=== PATIENT | male | born 1955 | race American Indian/Alaskan Native ===

== ENCOUNTER 2018-11-24 11:33 | Observation (INO) | payer MEDICARE ==
[2018-11-19 11:16] LABS: Hematocrit 41.3 % (35.5-45.6); Hemoglobin 14.4 gm/dl (11.8-15.2); Mean Corpuscular HGB Conc 35 % (32-34); Mean Corpuscular Volume 86 fl (84-94); Platelet Count 377 K/mm3 (140-440); Red Blood Count 4.77 M/mm3 (3.65-5.03); Red Cell Distribution Width 13.8 % (13.2-15.2)
[2018-11-19 11:29] LABS: INR 0.86 (0.87-1.13)
[2018-11-19 11:30] LABS: Partial Thromboplastin Time 33.2 Sec. (24.2-36.6)
[2018-11-19 11:32] LABS: Alanine Aminotransferase 13 units/L (7-56); BUN/Creatinine Ratio 8; Blood Urea Nitrogen 6 mg/dL (9-20); Calcium 9.1 mg/dL (8.4-10.2); Hemolysis Index 22
[2018-11-19 12:26] LABS: Basophils % (Manual) 0 % (0.0-1.8); Target Cells Few; Total Cells Counted 100
[2018-11-19 12:27] LABS: Platelet Estimate Consistent w Auto
--- NOTE | 2018-11-19 15:17 | Anesthesia Consultation ---
Anesthesia Consult and Med Hx Date of service: 11/19/18 - Airway Anesthetic Teeth Evaluation: Poor ROM Head & Neck: Adequate Mental/Hyoid Distance: Adequate Mallampati Class: Class I Intubation Access Assessment: Good - Pulmonary Exam CTA: Yes - Cardiac Exam Cardiac Exam: RRR - Pre-Operative Health Status ASA Pre-Surgery Classification: ASA3 Proposed Anesthetic Plan: General (Severe COPD, HTN) - Pulmonary Hx Smoking: Yes (1 PPD X 50 YRS) COPD: Yes (DAILY INHALERS) Hx Sleep Apnea: No (AUGIE PRE SCREEN LOW RISK.) - Cardiovascular System Hx Hypertension: No - Other Systems Hx Cancer: No
[~2018-11-24 11:33] MED LIST: VERSED IV NR
[2018-11-24] MEDS ORDERED: PROVENTIL IH ONE (12:35)
[2018-11-24] MEDS: LACTATED RINGERS 1,000 ML IV SCH ×3 (12:37→16:31)
[2018-11-24] MEDS ORDERED: PROVENTIL IH NR (13:00)
[2018-11-24] MEDS ORDERED: XYLOCAINE MPF 2% ONE (13:04)
[2018-11-24] MEDS ORDERED: DILAUDID ONE (13:04)
[2018-11-24] MEDS ORDERED: DIPRIVAN 10 MG/ML IV ONE (13:04)
[2018-11-24] MEDS ORDERED: LEVAQUIN 500MG/100ML 500 MG/100 ML BAG IV NR (13:05)
[2018-11-24] MEDS ORDERED: ZOFRAN IV PRN ×2 (14:28→15:03)
[2018-11-24] MEDS ORDERED: DILAUDID IV PRN (14:28)
--- NOTE | 2018-11-24 14:28 | Anesthesia Day of Surgery ---
Anesthesia Day of Surgery - Day of Surgery Patient Examined: Yes Patient H&P Reviewed: Yes Patient is NPO: Yes
[2018-11-24] MEDS ORDERED: NACL 0.9% IR ONE (14:45)
[2018-11-24] MEDS ORDERED: AMBIEN PO PRN (15:03)
[2018-11-24] MEDS ORDERED: TYLENOL PO PRN (15:03)
[2018-11-24] MEDS ORDERED: ZOFRAN ONE (15:03)
[2018-11-24] MEDS ORDERED: NARCAN 0.4 MG/1 ML IV PRN (15:03)
[2018-11-24] MEDS ORDERED: MORPHINE IV PRN (15:03)
--- NOTE | 2018-11-24 15:03 | Short Stay Summary ---
Short Stay Documentation Date of service: 11/24/18 - History H&P: obtained from office - Allergies and Medications Current Medications: Allergies Penicillins Allergy (Verified 11/17/18 14:24) Hives Home Medications Medication Instructions Recorded Confirmed Last Taken Type Fluticasone/Salmeterol [Advair 1 puff INHALATION BID 11/17/18 11/17/18 11/24/18 06:00 History 250-50 Diskus] Ibuprofen 600 mg PO PRN PRN 11/17/18 11/24/18 11/16/18 History Loratadine [Claritin] 10 mg PO DAILY 11/17/18 11/17/18 11/24/18 06:00 History Tamsulosin HCl [Flomax] 0.8 mg PO DAILY 11/17/18 11/24/18 11/23/18 History Umeclidinium [place] [Incruse 62.5 mcg IH DAILY 11/17/18 11/17/18 11/24/18 06:00 History Ellipta] Active Medications Albuterol (Proventil) 2.5 mg IH PREOP NR Stop: 11/24/18 23:00 Last Admin: 11/24/18 12:38 Dose: 2.5 mg Documented by: Hydromorphone HCl (Dilaudid) 0.5 mg IV Q10MIN PRN PRN Reason: Pain , Severe (7-10) Lactated Ringer's (Lactated Ringers) 1,000 mls @ 100 mls/hr IV DIRECT ERICK Last Admin: 11/24/18 12:37 Dose: 100 mls/hr Documented by: Midazolam HCl (Versed) 2 mg IV PREOP NR Stop: 11/24/18 23:59 Ondansetron HCl (Zofran) 4 mg IV ONCE PRN PRN Reason: Nausea And Vomiting - Brief post op/procedure progress note Date of procedure: 11/24/18 Pre-op diagnosis: BPH, RETENTION Post-op diagnosis: same Procedure: CTSTO, TURP Anesthesia: LELEA Surgeon: ALLAN RODRÍGUEZ Estimated blood loss: 50-100ml Pathology: list (PROSTATE CHIPS) Specimen disposition: to lab Condition: stable - Hospital course Hospital course: CIPRO & NORCO ON CHART + fever / obs again - feels better/ no temp---home - Disposition Condition at discharge: Stable Short Stay Discharge Plan Follow up with: GWEN ANN EA, MD [Primary Care Provider] - 7 Days
--- NOTE | 2018-11-24 16:21 | Operative Report ---
PREOPERATIVE DIAGNOSES: Benign prostatic hypertrophy, urinary retention, chronic obstructive pulmonary disease. POSTOPERATIVE DIAGNOSES: Benign prostatic hypertrophy, urinary retention, chronic obstructive pulmonary disease. PROCEDURE: Cystoscopy, transurethral resection of the prostate, bilateral retrograde pyelograms. SURGEON: Efren Lozano MD ANESTHESIA: General. ESTIMATED BLOOD LOSS: Minimal. FLUIDS: Crystalloid. COMPLICATIONS: No complications. INDICATIONS: This patient is a 63-year-old gentleman seen in the office for urinary retention. The patient failed voiding trial despite medical management. Urodynamic testing was consistent with obstructive uropathy. Peak voiding pressure 1 mL/sec, postvoid residual 60 mL, bladder capacity 220 mL. Discussed options. The patient agreed to proceed with surgical intervention. 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 DESCRIPTION OF PROCEDURE: The patient was taken to the operative suite, placed in the supine position. After adequate general anesthesia, placed in a dorsal lithotomy position, prepped and draped in a sterile fashion. Pancystourethroscopy was performed with a 22-Palest[place] Storz cystoscope, normal urethra. Prostate displayed moderate trilobar obstruction with significant median lobe. Bladder, no tumors or stones were noted. Both ureteral orifices were in normal position. Bilateral retrograde pyelograms were obtained with an 8-Palestinian Jose Angel catheter, 8 mL of contrast. The patient had some distal J hooking of the ureter, normal otherwise. No filling defects or obstruction. Next, using a 26-Palestinian resectoscope and loop with cutting and coag, it was monopolar cutting and coag 200 and 120, transurethral resection of the prostate was performed taken down the median lobe first and then the left and right lateral lobes respectively. Adequate hemostasis was achieved. Chips were evacuated out with the [email or web address] evacuator. Upon completion of the procedure, the ureteral orifices and external sphincter were intact. A 24-Palestinian 3-way catheter ____ was left indwelling. Rectal exam was benign. He was extubated and taken to recovery room in stable condition. He will go home on Cipro and [place] and will follow up in the office. JOB# [id number] D[facility]/NTS
[2018-11-24] MEDS: NACL 0.9% IR SCH (16:32)
--- NOTE | 2018-11-24 18:24 | Post Anesthesia Evaluation ---
- Post Anesthesia Evaluation Patient Participated: Yes Airway Patent: Yes Stable Respiratory Function: Yes Nausea/Vomiting: No Temp > 96.8F: Yes Pain Manageable: Yes Adequeate Hydration: Yes Anesthesia Complications: No
[2018-11-24] MEDS: BROVANA NEBU IH SCH (20:08)
[2018-11-24] MEDS: PULMICORT IH SCH (20:08)
--- NOTE | 2018-11-24 21:21 | Consultation ---
History of Present Illness - Reason for Consult Consult date: 11/24/18 medical management Requesting physician: ALLAN RODRÍGUEZ - History of Present Illness Patient admitted after cystoscopy and TURP for BPH and urinary retention. Postop patient doing well. Patient has history of COPD. No fever or chills. Patient being admitted for one-day observation. Past History Past Medical History: COPD, other (BPH) Past Surgical History: TURP Social history: lives with family, full code Family history: hypertension Medications and Allergies Allergies Allergy/AdvReac Type Severity Reaction Status Date / Time Penicillins Allergy Hives Verified 11/17/18 14:24 Home Medications Medication Instructions Recorded Confirmed Last Taken Type Fluticasone/Salmeterol [Advair 1 puff INHALATION BID 11/17/18 11/17/18 11/24/18 06:00 History 250-50 Diskus] Ibuprofen 600 mg PO PRN PRN 11/17/18 11/24/18 11/16/18 History Loratadine [Claritin] 10 mg PO DAILY 11/17/18 11/17/18 11/24/18 06:00 History Tamsulosin HCl [Flomax] 0.8 mg PO DAILY 11/17/18 11/24/18 11/23/18 History Umeclidinium [place] [Incruse 62.5 mcg IH DAILY 11/17/18 11/17/18 11/24/18 06:00 History Ellipta] Active Meds: Active Medications Acetaminophen (Tylenol) 650 mg PO Q4H PRN PRN Reason: Pain, Mild (1-3)/Fever > 100.5 Acetaminophen/Hydrocodone Bitart ([place] 5/325) 2 each PO Q4H PRN PRN Reason: Pain, Moderate (4-6) Albuterol (Proventil) 2.5 mg IH PREOP NR Stop: 11/24/18 23:00 Last Admin: 11/24/18 12:38 Dose: 2.5 mg Documented by: Arformoterol Tartrate (Brovana Nebu) 15 mcg IH Q12HRT [facility] Last Admin: 11/24/18 20:08 Dose: 15 mcg Documented by: Budesonide (Pulmicort) 0.5 mg IH Q12HRT [facility] Last Admin: 11/24/18 20:08 Dose: 0.5 mg Documented by: Hydromorphone HCl (Dilaudid) 0.5 mg IV Q10MIN PRN PRN Reason: Pain , Severe (7-10) Lactated Ringer's (Lactated Ringers) 1,000 mls @ 100 mls/hr IV DIRECT ERICK Last Admin: 11/24/18 16:31 Dose: 100 mls/hr Documented by: Sodium Chloride (Nacl 0.9% 1000 Ml) 1,000 mls @ 75 mls/hr IV DIRECT ERICK Levofloxacin/Dextrose (Levaquin 500mg/100ml) 500 mg in 100 mls @ 100 mls/hr IV Q24HR ERICK; Protocol Loratadine (Claritin) 10 mg PO DAILY ERICK Midazolam HCl (Versed) 2 mg IV PREOP NR Stop: 11/24/18 23:59 Miscellaneous Medication (Umeclidinium [place] [Incruse Ellipta]) 62.5 mcg IH DAILY ERICK Morphine Sulfate (Morphine) 2 mg IV Q4H PRN PRN Reason: Pain, Moderate (4-6) Naloxone HCl (Narcan 0.4 Mg/1 Ml) 0.1 mg IV Q2MIN PRN PRN Reason: Res Rate </= 8 or 02 SAT < 92% Ondansetron HCl (Zofran) 4 mg IV ONCE PRN PRN Reason: Nausea And Vomiting Ondansetron HCl (Zofran) 4 mg IV Q8H PRN PRN Reason: Nausea And Vomiting Sodium Chloride (Nacl 0.9%) 2,000 ml IR DIRECT ERICK Last Admin: 11/24/18 16:32 Dose: 2,000 ml Documented by: Zolpidem Tartrate (Ambien) 5 mg PO QHS PRN PRN Reason: Sleep Review of Systems All systems: negative Exam - Constitutional Vitals: Temp Pulse Resp BP Pulse Ox 97.2 F L 94 H 20 96/66 96 11/24/18 16:22 11/24/18 20:12 11/24/18 20:12 11/24/18 16:22 11/24/18 20:12 General appearance: Present: no acute distress, well-nourished - EENT Eyes: Present: PERRL ENT: hearing intact, clear oral mucosa - Neck Neck: Present: supple, normal ROM - Respiratory Respiratory effort: normal Respiratory: bilateral: CTA - Cardiovascular Heart rate: 78 Rhythm: regular Heart Sounds: Present: S1 & S2. Absent: rub, click - Extremities Extremities: no ischemia, pulses intact, pulses symmetrical, No edema Peripheral Pulses: within normal limits - Abdominal General gastrointestinal: Present: soft, non-tender, non-distended, normal bowel sounds Male genitourinary: Present: normal - Integumentary Integumentary: Present: clear, warm, dry - Musculoskeletal Musculoskeletal: gait normal, strength equal bilaterally - Psychiatric Psychiatric: appropriate mood/affect, intact judgment & insight - Neurologic Neurologic: CNII-XII intact, moves all extremities - Allied Health Allied health notes reviewed: nursing, case management Results - Labs CBC & Chem 7: 11/19/18 10:50 11/19/18 10:50 Assessment and Plan - Patient Problems (1) COPD (chronic obstructive pulmonary disease) Current Visit: Yes Status: Chronic Qualifiers: Chronic bronchitis type: simple Plan to address problem: Continue Ellipta and duo nebs when necessary (2) BPH (benign prostatic hyperplasia) Current Visit: Yes Status: Chronic Qualifiers: Lower urinary tract symptom presence: symptoms present Lower urinary tract symptom detail: urinary retention Qualified Code(s): N40.1 - Benign prostatic hyperplasia with lower urinary tract symptoms; R33.8 - Other retention of urine Plan to address problem: Patient had TURP today No need for Flomax for now on (3) DVT prophylaxis Current Visit: Yes Status: Acute Plan to address problem: SCDs
[2018-11-24] MEDS ORDERED: DUONEB *Not for PRN Use IH (21:27)
[2018-11-24] MEDS ORDERED: NON-FORMULARY (Fluticasone/Salmeterol 1 PUFF) INHALATION SCH (22:00)
[2018-11-25] MEDS: NORCO 5/325 PO PRN ×2 (00:56→10:29)
[2018-11-25] MEDS ORDERED: NACL 0.9% 1,000 ML IR ONE (01:16)
[2018-11-25] MEDS: NACL 0.9% 1000 ML 1,000 ML IV SCH ×3 (01:24→21:44)
[2018-11-25] MEDS ORDERED: NACL 0.9% IR ONE (01:25)
[2018-11-25 05:02] LABS: Basophils # (Auto) 0.1 K/mm3 (0.0-0.1); Basophils % (Auto) 1.3 % (0.0-1.8); Eosinophils # (Auto) 0.2 K/mm3 (0.0-0.4); Eosinophils % (Auto) 2.7 % (0.0-4.3); Hematocrit 37.9 % (35.5-45.6); Hemoglobin 13.2 gm/dl (11.8-15.2); Lymphocytes # (Auto) 2.1 K/mm3 (1.2-5.4); Lymphocytes % (Auto) 24.6 % (13.4-35.0); Mean Corpuscular HGB Conc 35 % (32-34); Mean Corpuscular Volume 86 fl (84-94); Monocytes # (Auto) 0.4 K/mm3 (0.0-0.8); Monocytes % (Auto) 5.2 % (0.0-7.3); Platelet Count 425 K/mm3 (140-440); Red Blood Count 4.44 M/mm3 (3.65-5.03); Red Cell Distribution Width 13.8 % (13.2-15.2)
[2018-11-25 05:25] LABS: BUN/Creatinine Ratio 9; Blood Urea Nitrogen 8 mg/dL (9-20); Calcium 8.4 mg/dL (8.4-10.2); Hemolysis Index 6
--- NOTE | 2018-11-25 08:12 | Fluoroscopy Report ---
FLUOROSCOPY RETROGRADE UROGRAPHY: HISTORY: Urinary retention, BPH. FINDINGS: Fluoroscopy was provided by radiology during retrograde urography by the urologist. 7 fluoroscopic images were captured. There is adequate filling of the ureters and intrarenal collecting systems with no filling defects or anatomic abnormalities identified. Please correlate with the procedural report if needed. IMPRESSION: Retrograde pyelograms within normal limits.
[2018-11-25] MEDS: PULMICORT IH SCH ×2 (09:15→21:41)
[2018-11-25] MEDS: BROVANA NEBU IH SCH ×2 (09:16→21:41)
[2018-11-25] MEDS: LEVAQUIN 500MG/100ML 500 MG/100 ML BAG IV SCH (09:49)
[2018-11-25] MEDS: CLARITIN PO SCH (09:49)
[2018-11-25] MEDS ORDERED: UMECLIDINIUM BROMIDE 62.5 MCG IH SCH (10:00)
[2018-11-25] MEDS: NACL 0.9% IR SCH ×3 (10:30→13:00)
--- NOTE | 2018-11-25 13:25 | Progress Note ---
Assessment and Plan having chills temp keep on levaquin cultues keep jasso clear Subjective Date of service: 11/25/18 Principal diagnosis: MODI Objective - Constitutional Vitals: Vital Signs - 12hr 11/25/18 11/25/18 11/25/18 04:56 07:10 09:16 Temperature 98.7 F 98.6 F Pulse Rate 80 77 Pulse Rate [ 85 Anterior Bilateral] Respiratory 17 18 Rate Respiratory 18 Rate [Anterior Bilateral] Blood Pressure 106/59 104/67 [Right] O2 Sat by Pulse 98 98 Oximetry 11/25/18 11/25/18 09:19 11:03 Temperature 101.2 F H Pulse Rate 95 H Pulse Rate [ Anterior Bilateral] Respiratory 18 Rate Respiratory Rate [Anterior Bilateral] Blood Pressure 107/66 [Right] O2 Sat by Pulse 98 90 Oximetry General appearance: Present: no acute distress - Neck Neck: supple - Respiratory Respiratory effort: normal Extremities: no ischemia - Gastrointestinal General gastrointestinal: Present: soft, non-tender - Labs CBC & Chem 7: 11/25/18 04:18 11/25/18 04:18 Labs: Abnormal lab results 11/25/18 11/25/18 Range/Units 04:18 04:18 MCHC 35 H (32-34) % BUN 8 L (9-20) mg/dL Glucose 114 H (75-100) mg/dL Medications & Allergies - Medications Allergies/Adverse Reactions: Allergies Penicillins Allergy (Verified 11/17/18 14:24) Hives Home Medications: Home Medications Medication Instructions Recorded Confirmed Last Taken Type Fluticasone/Salmeterol [Advair 1 puff INHALATION BID 11/17/18 11/17/18 11/24/18 06:00 History 250-50 Diskus] Ibuprofen 600 mg PO PRN PRN 11/17/18 11/24/18 11/16/18 History Loratadine [Claritin] 10 mg PO DAILY 11/17/18 11/17/18 11/24/18 06:00 History Tamsulosin HCl [Flomax] 0.8 mg PO DAILY 11/17/18 11/24/18 11/23/18 History Umeclidinium [place] [Incruse 62.5 mcg IH DAILY 11/17/18 11/17/18 11/24/18 06:00 History Ellipta] Active Medications: Generic Name Dose Route Start Last Admin Trade Name Freq PRN Reason Stop Dose Admin Acetaminophen 650 mg 11/24/18 15:03 11/25/18 12:50 Tylenol PO 650 mg Q4H PRN Administration Pain, Mild (1-3)/Fever > 100.5 Acetaminophen/Hydrocodone Bitart 2 each 11/24/18 15:03 11/25/18 10:29 [place] 5/325 PO 2 each Q4H PRN Administration Pain, Moderate (4-6) Albuterol/Ipratropium 1 ampul 11/24/18 21:27 Duoneb *Not For Prn Use* IH Q3H PRN Wheezing Arformoterol Tartrate 15 mcg 11/24/18 20:00 11/25/18 09:16 Brovana Nebu IH 15 mcg Q12HRT ERICK Administration Budesonide 0.5 mg 11/24/18 20:00 11/25/18 09:15 Pulmicort IH 0.5 mg Q12HRT ERICK Administration Hydromorphone HCl 0.5 mg 11/24/18 14:28 Dilaudid IV Q10MIN PRN Pain , Severe (7-10) Lactated Ringer's 1,000 mls @ 100 mls/hr 11/24/18 06:00 11/24/18 16:31 Lactated Ringers IV 100 mls/hr DIRECT ERICK Administration Sodium Chloride 1,000 mls @ 75 mls/hr 11/24/18 16:00 11/25/18 10:29 Nacl 0.9% 1000 Ml IV 75 mls/hr DIRECT ERICK Administration Levofloxacin/Dextrose 500 mg in 100 mls @ 100 mls/hr 11/25/18 10:00 11/25/18 09:49 Levaquin 500mg/100ml IV 100 mls/hr Q24HR ERICK Administration Protocol Loratadine 10 mg 11/25/18 10:00 11/25/18 09:49 Claritin PO Not Given DAILY ERICK Miscellaneous Medication 62.5 mcg 11/25/18 10:00 Umeclidinium [place] [Incruse Ellipta] IH DAILY ERICK Morphine Sulfate 2 mg 11/24/18 15:03 Morphine IV Q4H PRN Pain, Moderate (4-6) Naloxone HCl 0.1 mg 11/24/18 15:03 Narcan 0.4 Mg/1 Ml IV Q2MIN PRN Res Rate </= 8 or 02 SAT < 92% Ondansetron HCl 4 mg 11/24/18 14:28 Zofran IV ONCE PRN Nausea And Vomiting Ondansetron HCl 4 mg 11/24/18 15:03 Zofran IV Q8H PRN Nausea And Vomiting Sodium Chloride 2,000 ml 11/24/18 16:00 11/24/18 16:32 Nacl 0.9% IR 2,000 ml DIRECT ERICK Administration Zolpidem Tartrate 5 mg 11/24/18 15:03 Ambien PO QHS PRN Sleep
[2018-11-25 16:48] LABS: Hematocrit 41.5 % (35.5-45.6); Hemoglobin 14.3 gm/dl (11.8-15.2); Mean Corpuscular HGB Conc 35 % (32-34); Mean Corpuscular Volume 86 fl (84-94); Platelet Count 437 K/mm3 (140-440); Red Blood Count 4.82 M/mm3 (3.65-5.03); Red Cell Distribution Width 13.9 % (13.2-15.2)
[2018-11-25] MEDS ORDERED: NACL 0.9% 1000 ML 1,000 ML IV ONE (18:45)
[2018-11-26] MEDS: PULMICORT IH SCH (08:27)
[2018-11-26] MEDS: BROVANA NEBU IH SCH (08:28)
--- NOTE | 2018-11-26 09:05 | Progress Note ---
Subjective Date of service: 11/26/18 Principal diagnosis: MODI Interval history: TURP for BPH and urinary retention(11-24-18). Postop patient doing well. Patient has history of COPD. feels better urine pink tinged home today if ok with hospitalist edilberto ayala on chart (home with jasso) Objective - Constitutional Vitals: Vital Signs - 12hr 11/25/18 11/25/18 11/25/18 21:41 21:43 21:50 Temperature Pulse Rate 84 Pulse Rate [ 83 Anterior Bilateral] Respiratory 18 Rate Respiratory 18 Rate [Anterior Bilateral] Blood Pressure 100/60 O2 Sat by Pulse 99 99 Oximetry 11/25/18 11/26/18 11/26/18 21:57 00:46 04:07 Temperature 100.5 F H 98.8 F Pulse Rate 80 88 Pulse Rate [ 85 Anterior Bilateral] Respiratory 18 18 Rate Respiratory 18 Rate [Anterior Bilateral] Blood Pressure 115/65 106/64 O2 Sat by Pulse 89 99 Oximetry 11/26/18 11/26/18 08:28 08:40 Temperature Pulse Rate Pulse Rate [ 90 89 Anterior Bilateral] Respiratory Rate Respiratory 20 20 Rate [Anterior Bilateral] Blood Pressure O2 Sat by Pulse 91 Oximetry - Labs CBC & Chem 7: 11/25/18 16:09 11/25/18 04:18 Labs: Abnormal lab results 11/25/18 Range/Units 16:09 MCHC 35 H (32-34) % Medications & Allergies - Medications Allergies/Adverse Reactions: Allergies Penicillins Allergy (Verified 11/17/18 14:24) Hives Home Medications: Home Medications Medication Instructions Recorded Confirmed Last Taken Type Fluticasone/Salmeterol [Advair 1 puff INHALATION BID 11/17/18 11/17/18 11/24/18 06:00 History 250-50 Diskus] Ibuprofen 600 mg PO PRN PRN 11/17/18 11/24/18 11/16/18 History Loratadine [Claritin] 10 mg PO DAILY 11/17/18 11/17/18 11/24/18 06:00 History Tamsulosin HCl [Flomax] 0.8 mg PO DAILY 11/17/18 11/24/18 11/23/18 History Umeclidinium [place] [Incruse 62.5 mcg IH DAILY 11/17/18 11/17/18 11/24/18 06:00 History Ellipta] Active Medications: Generic Name Dose Route Start Last Admin Trade Name Freq PRN Reason Stop Dose Admin Acetaminophen 650 mg 11/24/18 15:03 11/25/18 12:50 Tylenol PO 650 mg Q4H PRN Administration Pain, Mild (1-3)/Fever > 100.5 Acetaminophen/Hydrocodone Bitart 2 each 11/24/18 15:03 11/25/18 10:29 [place] 5/325 PO 2 each Q4H PRN Administration Pain, Moderate (4-6) Albuterol/Ipratropium 1 ampul 11/24/18 21:27 Duoneb *Not For Prn Use* IH Q3H PRN Wheezing Arformoterol Tartrate 15 mcg 11/24/18 20:00 11/26/18 08:28 Brovana Nebu IH 15 mcg Q12HRT ERICK Administration Budesonide 0.5 mg 11/24/18 20:00 11/26/18 08:27 Pulmicort IH 0.5 mg Q12HRT ERICK Administration Hydromorphone HCl 0.5 mg 11/24/18 14:28 Dilaudid IV Q10MIN PRN Pain , Severe (7-10) Lactated Ringer's 1,000 mls @ 100 mls/hr 11/24/18 06:00 11/24/18 16:31 Lactated Ringers IV 100 mls/hr DIRECT ERICK Administration Sodium Chloride 1,000 mls @ 75 mls/hr 11/24/18 16:00 11/25/18 21:44 Nacl 0.9% 1000 Ml IV 75 mls/hr DIRECT ERICK Administration Levofloxacin/Dextrose 500 mg in 100 mls @ 100 mls/hr 11/25/18 10:00 11/25/18 09:49 Levaquin 500mg/100ml IV 100 mls/hr Q24HR ERICK Administration Protocol Loratadine 10 mg 11/25/18 10:00 11/25/18 09:49 Claritin PO Not Given DAILY ERICK Miscellaneous Medication 62.5 mcg 11/25/18 10:00 Umeclidinium [place] [Incruse Ellipta] IH DAILY ERICK Morphine Sulfate 2 mg 11/24/18 15:03 Morphine IV Q4H PRN Pain, Moderate (4-6) Naloxone HCl 0.1 mg 11/24/18 15:03 Narcan 0.4 Mg/1 Ml IV Q2MIN PRN Res Rate </= 8 or 02 SAT < 92% Ondansetron HCl 4 mg 11/24/18 14:28 Zofran IV ONCE PRN Nausea And Vomiting Ondansetron HCl 4 mg 11/24/18 15:03 Zofran IV Q8H PRN Nausea And Vomiting Sodium Chloride 2,000 ml 11/24/18 16:00 11/25/18 13:00 Nacl 0.9% IR 2,000 ml DIRECT ERICK Administration Zolpidem Tartrate 5 mg 11/24/18 15:03 Ambien PO QHS PRN Sleep
[2018-11-26] MEDS: LEVAQUIN 500MG/100ML 500 MG/100 ML BAG IV SCH (11:37)
[2018-11-26] MEDS: CLARITIN PO SCH (11:38)
--- NOTE | 2018-11-26 12:03 | Progress Note ---
Assessment and Plan Assessment and plan: BPH with Urinary retention s/p TURP patient stable to discharge home from Hopitalist point of view COPD stable. No shortness of breath History Interval history: Feels better s/p TURP Hospitalist Physical - Constitutional Vitals: Temp Pulse Resp BP Pulse Ox 98.8 F 89 20 106/64 91 11/26/18 04:07 11/26/18 08:40 11/26/18 08:40 11/26/18 04:07 11/26/18 08:28 General appearance: Present: no acute distress - EENT Eyes: Present: PERRL ENT: hearing intact - Neck Neck: Present: supple - Respiratory Respiratory: bilateral: CTA - Cardiovascular Rhythm: regular Heart Sounds: Present: S1 & S2 - Extremities Extremities: No edema Results - Labs CBC & Chem 7: 11/25/18 16:09 11/25/18 04:18 Labs: Laboratory Last Values WBC 8.9 K/mm3 (4.5-11.0) 11/25/18 16:09 RBC 4.82 M/mm3 (3.65-5.03) 11/25/18 16:09 Hgb 14.3 gm/dl (11.8-15.2) 11/25/18 16:09 Hct 41.5 % (35.5-45.6) 11/25/18 16:09 MCV 86 fl (84-94) 11/25/18 16:09 MCH 30 pg (28-32) 11/25/18 16:09 MCHC 35 % (32-34) H 11/25/18 16:09 RDW 13.9 % (13.2-15.2) 11/25/18 16:09 Plt Count 437 K/mm3 (140-440) 11/25/18 16:09 Lymph % (Auto) 24.6 % (13.4-35.0) 11/25/18 04:18 [place] % (Auto) 5.2 % (0.0-7.3) 11/25/18 04:18 Eos % (Auto) 2.7 % (0.0-4.3) 11/25/18 04:18 Baso % (Auto) 1.3 % (0.0-1.8) 11/25/18 04:18 Lymph # 2.1 K/mm3 (1.2-5.4) 11/25/18 04:18 [place] # 0.4 K/mm3 (0.0-0.8) 11/25/18 04:18 Eos # 0.2 K/mm3 (0.0-0.4) 11/25/18 04:18 Baso # 0.1 K/mm3 (0.0-0.1) 11/25/18 04:18 Add Manual Diff Complete 11/19/18 10:50 Total Counted 100 11/19/18 10:50 Seg Neutrophils % 66.2 % (40.0-70.0) 11/25/18 04:18 Seg Neuts % (Manual) 53.0 % (40.0-70.0) 11/19/18 10:50 Band Neutrophils % 0 % 11/19/18 10:50 Lymphocytes % (Manual) 34.0 % (13.4-35.0) 11/19/18 10:50 Reactive Lymphs % (Man) 0 % 11/19/18 10:50 Monocytes % (Manual) 9.0 % (0.0-7.3) H 11/19/18 10:50 Eosinophils % (Manual) 4.0 % (0.0-4.3) 11/19/18 10:50 Basophils % (Manual) 0 % (0.0-1.8) 11/19/18 10:50 Metamyelocytes % 0 % 11/19/18 10:50 Myelocytes % 0 % 11/19/18 10:50 Promyelocytes % 0 % 11/19/18 10:50 Blast Cells % 0 % 11/19/18 10:50 Nucleated RBC % Not Reportable 11/19/18 10:50 Seg Neutrophils # 5.5 K/mm3 (1.8-7.7) 11/25/18 04:18 Seg Neutrophils # Man 2.7 K/mm3 (1.8-7.7) 11/19/18 10:50 Band Neutrophils # 0.0 K/mm3 11/19/18 10:50 Lymphocytes # (Manual) 1.7 K/mm3 (1.2-5.4) 11/19/18 10:50 Abs React Lymphs (Man) 0.0 K/mm3 11/19/18 10:50 Monocytes # (Manual) 0.5 K/mm3 (0.0-0.8) 11/19/18 10:50 Eosinophils # (Manual) 0.2 K/mm3 (0.0-0.4) 11/19/18 10:50 Basophils # (Manual) 0.0 K/mm3 (0.0-0.1) 11/19/18 10:50 Metamyelocytes # 0.0 K/mm3 11/19/18 10:50 Myelocytes # 0.0 K/mm3 11/19/18 10:50 Promyelocytes # 0.0 K/mm3 11/19/18 10:50 Blast Cells # 0.0 K/mm3 11/19/18 10:50 WBC Morphology Not Reportable 11/19/18 10:50 Hypersegmented Neuts Not Reportable 11/19/18 10:50 Hyposegmented Neuts Not Reportable 11/19/18 10:50 Hypogranular Neuts Not Reportable 11/19/18 10:50 Smudge Cells Not Reportable 11/19/18 10:50 Toxic Granulation Not Reportable 11/19/18 10:50 Toxic Vacuolation Not Reportable 11/19/18 10:50 Dohle Bodies Not Reportable 11/19/18 10:50 Pelger-Huet Anomaly Not Reportable 11/19/18 10:50 Alfonso Rods Not Reportable 11/19/18 10:50 Platelet Estimate Consistent w auto 11/19/18 10:50 Clumped Platelets Not Reportable 11/19/18 10:50 Plt Clumps, EDTA Not Reportable 11/19/18 10:50 Large Platelets Not Reportable 11/19/18 10:50 Giant Platelets Not Reportable 11/19/18 10:50 Platelet Satelliting Not Reportable 11/19/18 10:50 Plt Morphology Comment Not Reportable 11/19/18 10:50 RBC Morphology Not Reportable 11/19/18 10:50 Dimorphic RBCs Not Reportable 11/19/18 10:50 Polychromasia Not Reportable 11/19/18 10:50 Hypochromasia Not Reportable 11/19/18 10:50 Poikilocytosis Not Reportable 11/19/18 10:50 Anisocytosis Not Reportable 11/19/18 10:50 Microcytosis Not Reportable 11/19/18 10:50 Macrocytosis Not Reportable 11/19/18 10:50 Spherocytes Not Reportable 11/19/18 10:50 Pappenheimer Bodies Not Reportable 11/19/18 10:50 Sickle Cells Not Reportable 11/19/18 10:50 Target Cells Few 11/19/18 10:50 Tear Drop Cells Not Reportable 11/19/18 10:50 Ovalocytes Not Reportable 11/19/18 10:50 Helmet Cells Not Reportable 11/19/18 10:50 [place] Bodies Not Reportable 11/19/18 10:50 [place] Rings Not Reportable 11/19/18 10:50 [place] Cells Not Reportable 11/19/18 10:50 Bite Cells Not Reportable 11/19/18 10:50 Crenated Cell Not Reportable 11/19/18 10:50 Elliptocytes Not Reportable 11/19/18 10:50 Acanthocytes (Spur) Not Reportable 11/19/18 10:50 Rouleaux Not Reportable 11/19/18 10:50 Hemoglobin C Crystals Not Reportable 11/19/18 10:50 Schistocytes Not Reportable 11/19/18 10:50 Malaria parasites Not Reportable 11/19/18 10:50 Jesus Manuel Bodies Not Reportable 11/19/18 10:50 Hem Pathologist Commnt No 11/19/18 10:50 PT 12.1 Sec. (12.2-14.9) L 11/19/18 10:50 INR 0.86 (0.87-1.13) L 11/19/18 10:50 APTT 33.2 Sec. (24.2-36.6) 11/19/18 10:50 Sodium 139 mmol/L (137-145) 11/25/18 04:18 Potassium 4.6 mmol/L (3.6-5.0) 11/25/18 04:18 Chloride 103.5 mmol/L (98-107) 11/25/18 04:18 Carbon Dioxide 27 mmol/L (22-30) 11/25/18 04:18 Anion Gap 13 mmol/L 11/25/18 04:18 BUN 8 mg/dL (9-20) L 11/25/18 04:18 Creatinine 0.9 mg/dL (0.8-1.5) 11/25/18 04:18 Estimated GFR > 60 ml/min 11/25/18 04:18 BUN/Creatinine Ratio 9 % 11/25/18 04:18 Glucose 114 mg/dL (75-100) H 11/25/18 04:18 POC Glucose 86 (70-105) 11/24/18 12:26 Calcium 8.4 mg/dL (8.4-10.2) 11/25/18 04:18 Total Bilirubin 0.50 mg/dL (0.1-1.2) 11/19/18 10:50 AST 18 units/L (5-40) 11/19/18 10:50 ALT 13 units/L (7-56) 11/19/18 10:50 Alkaline Phosphatase 79 units/L (35-129) 11/19/18 10:50 Total Protein 6.9 g/dL (6.3-8.2) 11/19/18 10:50 Albumin 4.0 g/dL (3.9-5) 11/19/18 10:50 Albumin/Globulin Ratio 1.4 % 11/19/18 10:50 Blood Type O POSITIVE 11/24/18 12:15 Antibody Screen Negative 11/24/18 12:15
[2018-11-26 12:45] VITALS: BP 110/64
== END 2018-11-26 14:36 | disposition home or self-care (01) ==
LOC: OR 11:33 → 3B-SURG 15:03
PROVIDERS: ADMIT Urology; ATTEND Urology
DX: N40.1 Benign prostatic hyperplasia with lower urinary tract symptoms (principal); J44.9 Chronic obstructive pulmonary disease, unspecified
CPT/HCPCS: 36415; 52601; 74420; 80048; 80053; 82962; 85007; 85025; 85027; 85610; 85730; 86850; 86900; 86901; 87040; 88305; 94640; 94760; 96365; 96366; A4217; G0378; J1170; J1956; J2405; J2704; J7030; J7120; Q9967